=== PATIENT | male | born 1990 | race Caucasian/White ===

== ENCOUNTER 2021-12-21 23:16 | Emergency (ER) | payer OTHER ==
[~2021-12-21] VITALS: Ht 175.3 cm; Wt 88.5 kg
[2021-12-22 00:26] LABS: ABSOLUTE EOSINOPHILS 0.2 thou/uL (0.0-0.7); ABSOLUTE LYMPHOCYTES 2.7 thou/uL (0.8-5.3); ABSOLUTE MONOCYTES 0.8 thou/uL (0.0-1.2); ABSOLUTE NEUTROPHILS 5.1 thou/uL (1.6-8.1); BASOPHILS 0.5 %; EOSINOPHILS 1.8 %; HEMATOCRIT 42.1 % (42.0-52.0); HEMOGLOBIN 14.1 gm/dL (14.0-18.0); LYMPHOCYTES 30.7 %; MCH 30.8 pg (26.0-34.0); MCHC 33.6 g/dL (28.0-37.0); MCV 91.9 fL (80.0-100.0); MONOCYTES 9.2 %; MPV 7.6 fl. (7.2-11.1); NUCLEATED RBCS 0 /100WBC; PLATELET COUNT* 220 thou/uL (150-400); POLYS 57.8 %; RBC 4.58 mil/uL (4.50-6.00); RDW-CV 13.2 % (10.5-14.5); WBC 8.8 thou/uL (4.0-11.0)
[2021-12-22 00:34] LABS: CALCIUM 8.7 mg/dL (8.5-10.1); CREATININE 0.9 mg/dL (0.6-1.3)
[2021-12-22] MEDS ORDERED: PERCOCET 7.5-31 EAC1 PO (02:08)
[2021-12-22] MEDS ORDERED: IBUPROFEN 800800 MG PO (02:10)
[2021-12-22 02:33] VITALS: BP 113/59
== END 2021-12-22 02:34 | disposition home or self-care (01) ==
LOC: M.ERS 23:16
PROVIDERS: Emergency Medicine
DX: M43.6 Torticollis (principal)